=== PATIENT | male | born 1965 | race Caucasian/White ===

== ENCOUNTER 2018-01-01 17:44 | Inpatient (IN) | payer OTHER ==
[2018-01-01 19:12] VITALS: BMI 29.3
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
[2018-01-01] MEDS ORDERED: guaiFENesin/D-METHORPHAN HB 10 ML UNIT-DOSE CUPS PO PRN (21:40)
[2018-01-01] MEDS ORDERED: MAGNESIUM HYDROX 2400MG/30ML ORAL SUSPENSION 30 ML CUP PO PRN (21:40)
[2018-01-01] MEDS ORDERED: hydrOXYzine PAMOATE 50 MG CAPSULE (FP) PO PRN (21:40)
[2018-01-01] MEDS ORDERED: LOPERAMIDE HCL 2 MG CAPSULE PO PRN (21:40)
[2018-01-01] MEDS ORDERED: chlordiazePOXIDE HCL 25 MG CAPSULE PO PRN (21:40)
[2018-01-01] MEDS ORDERED: MENTHOL/PHENOL 1 EACH UD MM PRN (21:40)
[2018-01-01] MEDS ORDERED: MAGNESIUM CITRATE 300 ML BOTTLE PO PRN (21:40)
[2018-01-01] MEDS ORDERED: IBUPROFEN 400 MG TABLET (FP) PO PRN (21:40)
[2018-01-01] MEDS ORDERED: chlordiazePOXIDE HCL 25 MG CAPSULE PO ONE (21:40)
[2018-01-01] MEDS ORDERED: MAG HYDROX/AL HYDROX/SIMETH 30 ML UNIT-DOSE CUP PO PRN (21:40)
[2018-01-01] MEDS ORDERED: P-EPHED 60MG/TRIPROLIDI 2.5MG TABLET PO PRN (21:40)
[2018-01-01] MEDS ORDERED: ACETAMINOPHEN 325 MG TABLET (FP) PO PRN (21:40)
[2018-01-01] MEDS: THIAMINE HCL 100 MG TABLET (FP) PO SCH (22:43)
[2018-01-01] MEDS: chlordiazePOXIDE HCL 25 MG CAPSULE PO SCH (22:44)
[2018-01-01] MEDS: MELATONIN 5 MG TABLETS PO PRN (22:44)
[2018-01-02 01:10] LABS: URINE APPEARANCE CLEAR; URINE BILIRUBIN NEGATIVE (<2.0 mg/dL); URINE COLOR STRAW; URINE GLUCOSE (UA) NEGATIVE (NEGATIVE); URINE KETONE NEGATIVE (NEGATIVE); URINE LEUK ESTERASE NEGATIVE (NEGATIVE); URINE NITRITE NEGATIVE (NEGATIVE); URINE PROTEIN NEGATIVE (NEGATIVE); URINE UROBILINOGEN NEGATIVE mg/dL (0.2-1.0)
[2018-01-02] MEDS: chlordiazePOXIDE HCL 25 MG CAPSULE PO SCH ×4 (05:46→22:06)
[2018-01-02] MEDS ORDERED: METHADONE HCL 10 MG TABLET PO SCH (09:15)
[2018-01-02] MEDS ORDERED: METHADONE 40 MG, METHADONE 5 MG PO ONE (09:45)
[2018-01-02 09:55] LABS: HEMOGLOBIN 12.6 GM/dL (11.7-16.9); MCH 28.3 pg (25.7-33.7); MEAN CELL VOLUME 85.9 fl (80-96); MEAN PLT VOLUME 7.7 fl (7.5-11.1); PLATELET COUNT 273 K/MM3 (134-434); RBC 4.43 M/mm3 (4.00-5.60); RDW 13.7 % (11.9-15.9); WHITE BLOOD COUNT 8.5 K/mm3 (4.0-10.0)
[2018-01-02 09:56] LABS: ALBUMIN 3.1 g/dl (3.4-5.0); ANION GAP 6 (8-16); BLOOD UREA NITROGEN 10 mg/dL (7-18); CALCIUM 8.2 mg/dL (8.5-10.1); CHLORIDE 106 mmol/L (98-107); CO2 31 mmol/L (21-32); CREATININE 0.7 mg/dL (0.7-1.3); GLUCOSE,RANDOM 82 mg/dL (74-106); POTASSIUM 4.6 mmol/L (3.5-5.1); SGOT/AST 12 U/L (15-37); SGPT/ALT 14 U/L (12-78); SODIUM 143 mmol/L (136-145)
[2018-01-02 09:58] LABS: ALK PHOS 111 U/L (45-117); BILIRUBIN,TOTAL 0.3 mg/dL (0.2-1.0); TOT PROT 6.9 g/dl (6.4-8.2)
[2018-01-02] MEDS ORDERED: METHADONE HCL 5 MG TABLET ONE (10:18)
[2018-01-02] MEDS ORDERED: METHADONE HCL 40 MG DISPERSABLE TABLET ONE (10:19)
[2018-01-02] MEDS: PRENATAL VITAMINS W/ FOLIC ACID TABLET (FP) PO SCH (10:24)
[2018-01-02] MEDS: NICOTINE 14 MG/24 HOURS TOPICAL PATCH TD SCH (10:24)
--- NOTE | 2018-01-02 11:16 | CONSULT ---
[facility] Psychiatric Consult - Data Date of interview: 01/02/18 Admission source: [facility] Identifying data: 52 yo male with hx of alcohol, xanax, klonopin, and nicotine dependence is here seeking detox. Last detox detox [facility] February 2016, PMHX: Hep C, GERD chronic pain left foot, anxiety and depression. Reports past hx of blackouts from alcohol , last episode 2 years ago. Denies suicidal / homicidal ideation. Longest period of sobriety 3 years.
--- NOTE | 2018-01-02 11:17 | CONSULT ---
[facility] Psychiatric Consult - Data Date of interview: 01/02/18 Admission source: [facility] Identifying data: This is 52 years old male, single, living alone, on SSI, ambulating with cane, with history of alcohol, xanax, klonopin, and nicotine dependence is here seeking detox. Oatient reportsn withdrawal symptoms. Denies psychiatric hospitalization history. Substance Abuse History: - Smoking Cessation. Smoking history: Current every day smoker. Have you smoked in the past 12 months: Yes. Aproximately how many cigarettes per day: 10. Hx Chewing Tobacco Use: No. Initiated information on smoking cessation: Yes. 'Breaking Loose' booklet given: 01/01/18. - Substance & Tx. History. Hx Alcohol Use: Yes. Hx Substance Use: Yes. Substance Use Type : Alcohol, Tranquilizers. Hx Substance Use Treatment: Yes (Last detox detox [facility] February 2016). - Substances Abused. Alcohol. Route: Oral. Frequency: Daily. Amount used: 15 CANS OF -16 OUNCES OF COORS LIGHT. Age of first use: 18. Date of Last Use: 01/01/18. Alprazolam (Xanax). Route: Oral. Frequency: 3-6 times per week. Amount used: 1.5MG TABLET. Age of first use: 52. Date of Last Use: 01/01/18. Benzodiazepine (Klonopin). Route: Oral. Frequency: 3-6 times per week. Amount used: 2MG TABLET. Age of first use: 52. Date of Last Use: 01/01/18 Medical History: Hep C, GERD Chronic pain left foot, s/p Left Ankle Suurgery, MMTP history Psychiatric History: Patient reports history of anxiety and depressionl, reports taking prior to admission: Prozac 20mg poqd Physical/Sexual Abuse/Trauma History: Denies Additional Comment: Prozac 20mg poqd Mental Status Exam - Mental Status Exam Alert and Oriented to: Person Cognitive Function: Fair Patient Appearance: Unkempt Mood: Sad Affect: Mood Congruent Patient Behavior: Guarded, Cooperative Speech Pattern: Appropriate Voice Loudness: Mildly Soft/Quiet Thought Process: Goal Oriented Thought Disorder: Being Controlled Hallucinations: Denies Suicidal Ideation: Denies Homicidal Ideation: Denies Insight/Judgement: Fair Sleep: Difficulty falling asleep Appetite: Weight gain Muscle strength/Tone: Mild Hypertonicity Gait/Station: Deferred Additional Comments: Prozac 20mg poqd Psychiatric Findings - Problem List ([place] 1, 2,3) (1) Alcohol dependence with uncomplicated withdrawal Current Visit: Yes Status: Acute (2) Sedative, hypnotic or anxiolytic dependence with withdrawal, unspecified Current Visit: Yes Status: Acute (3) Nicotine dependence Current Visit: Yes Status: Chronic Qualifiers: Nicotine product type: cigarettes Substance use status: uncomplicated Qualified Code(s): F17.210 - Nicotine dependence, cigarettes, uncomplicated (4) Opioid dependence on agonist therapy Current Visit: Yes Status: Chronic (5) Substance induced mood disorder Current Visit: No Status: Chronic (6) Methadone maintenance therapy patient Current Visit: No Status: Chronic - Initial Treatment Plan Initial Treatment Plan: Prozac 20mg poqd
[2018-01-02] MEDS: FLUoxetine HCL 20 MG CAPSULE (FP) PO SCH (11:59)
--- NOTE | 2018-01-02 13:26 | PN ---
S CIWA - CIWA Score Nausea/Vomitin-No Nausea/No Vomiting Muscle Tremors: 3 Anxiety: 4-Mod. Anxious/Guarded Agitation: 3 Paroxysmal Sweats: 3 Orientation: 0-Oriented Tacttile Disturbances: 0-None Auditory Disturbances: 2-Mild Harshness/Frighten Visual Disturbances: 2-Mild Sensitivity Headache: 0-None Present CIWA-Ar Total Score: 17 BHS Progress Note (SOAP) Subjective: Tremors, Anxious, Stomach Cramping, Sweating. Objective: PATIENT A & O X 3. PATIENT OBSERVED AMBULATING ON UNIT. NO ACUTE DISTRESS. 01/02/18 13:24 Vital Signs Temperature 96.3 F L 01/02/18 09:29 Pulse Rate 87 01/02/18 09:29 Respiratory Rate 20 01/02/18 09:29 Blood Pressure 93/58 01/02/18 09:29 O2 Sat by Pulse Oximetry (%) Laboratory Tests 01/02/18 01/02/18 01/02/18 00:01 07:00 07:00 WBC 8.5 RBC 4.43 Hgb 12.6 Hct 38.0 MCV 85.9 MCH 28.3 MCHC 33.0 RDW 13.7 Plt Count 273 MPV 7.7 Sodium 143 Potassium 4.6 Chloride 106 Carbon Dioxide 31 D Anion Gap 6 L BUN 10 Creatinine 0.7 Creat Clearance w eGFR > 60 Random Glucose 82 Calcium 8.2 L Total Bilirubin 0.3 D AST 12 L D ALT 14 D Alkaline Phosphatase 111 D Total Protein 6.9 Albumin 3.1 L Urine Color Straw Urine Appearance Clear Urine pH 6.0 Ur Specific [place] 1.004 Urine Protein Negative Urine Glucose (UA) Negative Urine Ketones Negative Urine Blood Negative Urine Nitrite Negative Urine Bilirubin Negative Urine Urobilinogen Negative Ur Leukocyte Esterase Negative RPR Titer 01/02/18 07:00 WBC RBC Hgb Hct MCV MCH MCHC RDW Plt Count MPV Sodium Potassium Chloride Carbon Dioxide Anion Gap BUN Creatinine Creat Clearance w eGFR Random Glucose Calcium Total Bilirubin AST ALT Alkaline Phosphatase Total Protein Albumin Urine Color Urine Appearance Urine pH Ur Specific [place] Urine Protein Urine Glucose (UA) Urine Ketones Urine Blood Urine Nitrite Urine Bilirubin Urine Urobilinogen Ur Leukocyte Esterase RPR Titer Nonreactive LABS NOTED. 01/02/18 13:26 Assessment: 01/02/18 13:25 WITHDRAWAL SYMPTOMS. Plan: CONTINUE DETOX. INCREASE DAILY PO FLUID INTAKE.
--- NOTE | 2018-01-02 16:34 | EKG ---
Test Reason : Blood Pressure : / mmHG Vent. Rate : 076 BPM Atrial Rate : 076 BPM P-R Int : 180 ms QRS Dur : 098 ms QT Int : 388 ms P-R-T Axes : 043 022 020 degrees QTc Int : 436 ms NORMAL SINUS RHYTHM NORMAL ECG NO PREVIOUS ECGS AVAILABLE Confirmed by LYNDON BLACK MD ([id number]) on 01/02/2018 4:34:01 PM Referred By: Confirmed By:LYNDON BLACK MD
[2018-01-02] MEDS: THIAMINE HCL 100 MG TABLET (FP) PO SCH (22:06)
[2018-01-02] MEDS: MELATONIN 5 MG TABLETS PO PRN (22:07)
[2018-01-03] MEDS ORDERED: METHADONE HCL 40 MG DISPERSABLE TABLET ONE (04:38)
[2018-01-03] MEDS ORDERED: METHADONE HCL 5 MG TABLET ONE (04:38)
[2018-01-03] MEDS: chlordiazePOXIDE HCL 25 MG CAPSULE PO SCH ×3 (05:40→17:36)
[2018-01-03] MEDS: METHADONE 40 MG, METHADONE 5 MG PO SCH (05:40)
[2018-01-03] MEDS: PRENATAL VITAMINS W/ FOLIC ACID TABLET (FP) PO SCH (10:06)
[2018-01-03] MEDS: NICOTINE 14 MG/24 HOURS TOPICAL PATCH TD SCH (10:07)
[2018-01-03] MEDS: FLUoxetine HCL 20 MG CAPSULE (FP) PO SCH (10:07)
--- NOTE | 2018-01-03 16:04 | PN ---
[facility] CIWA - CIWA Score Nausea/Vomitin-No Nausea/No Vomiting Muscle Tremors: 3 Anxiety: 3 Agitation: 3 Paroxysmal Sweats: No Perspiration Orientation: 2-Disoriented Date<2 days Tacttile Disturbances: 3-Moderate Itch/Numb/Burn Auditory Disturbances: 0-None Visual Disturbances: 2-Mild Sensitivity Headache: 0-None Present CIWA-Ar Total Score: 16 BHS Progress Note (SOAP) Subjective: Tremors, Body Aches, Fatigue, Constipation. Objective: PATIENT A & O X 2 (UNCERTAIN ABOUT CURRENT DAY / DATE). PATIENT OBSERVED AMBULATING ON UNIT WITH ASSISTANCE OF A CANE. NO ACUTE DISTRESS. 01/03/18 16:04 Vital Signs Temperature 96.8 F L 01/03/18 13:07 Pulse Rate 83 01/03/18 13:07 Respiratory Rate 18 01/03/18 13:07 Blood Pressure 109/70 01/03/18 13:07 O2 Sat by Pulse Oximetry (%) Laboratory Tests 01/02/18 01/02/18 01/02/18 00:01 07:00 07:00 WBC 8.5 RBC 4.43 Hgb 12.6 Hct 38.0 MCV 85.9 MCH 28.3 MCHC 33.0 RDW 13.7 Plt Count 273 MPV 7.7 Sodium 143 Potassium 4.6 Chloride 106 Carbon Dioxide 31 D Anion Gap 6 L BUN 10 Creatinine 0.7 Creat Clearance w eGFR > 60 Random Glucose 82 Calcium 8.2 L Total Bilirubin 0.3 D AST 12 L D ALT 14 D Alkaline Phosphatase 111 D Total Protein 6.9 Albumin 3.1 L Urine Color Straw Urine Appearance Clear Urine pH 6.0 Ur Specific [place] 1.004 Urine Protein Negative Urine Glucose (UA) Negative Urine Ketones Negative Urine Blood Negative Urine Nitrite Negative Urine Bilirubin Negative Urine Urobilinogen Negative Ur Leukocyte Esterase Negative RPR Titer 01/02/18 07:00 WBC RBC Hgb Hct MCV MCH MCHC RDW Plt Count MPV Sodium Potassium Chloride Carbon Dioxide Anion Gap BUN Creatinine Creat Clearance w eGFR Random Glucose Calcium Total Bilirubin AST ALT Alkaline Phosphatase Total Protein Albumin Urine Color Urine Appearance Urine pH Ur Specific [place] Urine Protein Urine Glucose (UA) Urine Ketones Urine Blood Urine Nitrite Urine Bilirubin Urine Urobilinogen Ur Leukocyte Esterase RPR Titer Nonreactive LABS NOTED. Assessment: 01/03/18 16:05 WITHDRAWAL SYMPTOMS. Plan: CONTINUE DETOX. INCREASE DAILY PO FLUID INTAKE.
[2018-01-03] MEDS: METHYL SALICYLATE/MENTHOL OINT 30 GM TUBE TP SCH (22:13)
[2018-01-03] MEDS: chlordiazePOXIDE 5 MG CAPSULE PO SCH (22:14)
[2018-01-03] MEDS: MELATONIN 5 MG TABLETS PO PRN (22:14)
[2018-01-03] MEDS: THIAMINE HCL 100 MG TABLET (FP) PO SCH (22:14)
[2018-01-04] MEDS ORDERED: METHADONE HCL 5 MG TABLET ONE (03:36)
[2018-01-04] MEDS ORDERED: METHADONE HCL 40 MG DISPERSABLE TABLET ONE (03:36)
[2018-01-04] MEDS: METHADONE 40 MG, METHADONE 5 MG PO SCH (05:12)
[2018-01-04] MEDS: chlordiazePOXIDE 5 MG CAPSULE PO SCH ×3 (05:12→17:48)
[2018-01-04] MEDS: PRENATAL VITAMINS W/ FOLIC ACID TABLET (FP) PO SCH (10:16)
[2018-01-04] MEDS: FLUoxetine HCL 20 MG CAPSULE (FP) PO SCH (10:16)
[2018-01-04] MEDS: NICOTINE 14 MG/24 HOURS TOPICAL PATCH TD SCH (10:17)
[2018-01-04] MEDS: METHYL SALICYLATE/MENTHOL OINT 30 GM TUBE TP SCH ×2 (10:17→22:17)
--- NOTE | 2018-01-04 14:58 | PN ---
BHS Progress Note (SOAP) Subjective: Body Aches, Anxious, Tremors, Constipation. Objective: PATIENT A & O X 3, OBSERVED AMBULATING ON UNIT WITH ASSISTANCE OF A CANE. NO ACUTE DISTRESS. 01/04/18 14:57 Vital Signs Temperature 97.4 F L 01/04/18 14:46 Pulse Rate 91 H 01/04/18 14:46 Respiratory Rate 20 01/04/18 14:46 Blood Pressure 114/77 01/04/18 14:46 O2 Sat by Pulse Oximetry (%) Laboratory Tests 01/02/18 01/02/18 01/02/18 00:01 07:00 07:00 WBC 8.5 RBC 4.43 Hgb 12.6 Hct 38.0 MCV 85.9 MCH 28.3 MCHC 33.0 RDW 13.7 Plt Count 273 MPV 7.7 Sodium 143 Potassium 4.6 Chloride 106 Carbon Dioxide 31 D Anion Gap 6 L BUN 10 Creatinine 0.7 Creat Clearance w eGFR > 60 Random Glucose 82 Calcium 8.2 L Total Bilirubin 0.3 D AST 12 L D ALT 14 D Alkaline Phosphatase 111 D Total Protein 6.9 Albumin 3.1 L Urine Color Straw Urine Appearance Clear Urine pH 6.0 Ur Specific [place] 1.004 Urine Protein Negative Urine Glucose (UA) Negative Urine Ketones Negative Urine Blood Negative Urine Nitrite Negative Urine Bilirubin Negative Urine Urobilinogen Negative Ur Leukocyte Esterase Negative RPR Titer 01/02/18 07:00 WBC RBC Hgb Hct MCV MCH MCHC RDW Plt Count MPV Sodium Potassium Chloride Carbon Dioxide Anion Gap BUN Creatinine Creat Clearance w eGFR Random Glucose Calcium Total Bilirubin AST ALT Alkaline Phosphatase Total Protein Albumin Urine Color Urine Appearance Urine pH Ur Specific [place] Urine Protein Urine Glucose (UA) Urine Ketones Urine Blood Urine Nitrite Urine Bilirubin Urine Urobilinogen Ur Leukocyte Esterase RPR Titer Nonreactive LABS NOTED. 01/04/18 14:58 Assessment: 01/04/18 14:57 WITHDRAWAL SYMPTOMS. Plan: CONTINUE DETOX. PATIENT SCHEDULED FOR D/C TOMORROW.
[2018-01-04] MEDS: chlordiazePOXIDE HCL 10 MG CAPSULE PO SCH (22:17)
[2018-01-04] MEDS: THIAMINE HCL 100 MG TABLET (FP) PO SCH (22:17)
[2018-01-04] MEDS: MELATONIN 5 MG TABLETS PO PRN (22:17)
[2018-01-05] MEDS ORDERED: METHADONE HCL 5 MG TABLET ONE (04:51)
[2018-01-05] MEDS ORDERED: METHADONE HCL 40 MG DISPERSABLE TABLET ONE (04:51)
[2018-01-05] MEDS: METHADONE 40 MG, METHADONE 5 MG PO SCH (05:16)
[2018-01-05] MEDS: chlordiazePOXIDE HCL 10 MG CAPSULE PO SCH ×2 (05:16→11:09)
[2018-01-05] MEDS: METHYL SALICYLATE/MENTHOL OINT 30 GM TUBE TP SCH ×2 (10:27→22:47)
[2018-01-05] MEDS: FLUoxetine HCL 20 MG CAPSULE (FP) PO SCH (10:27)
[2018-01-05] MEDS: PRENATAL VITAMINS W/ FOLIC ACID TABLET (FP) PO SCH (10:27)
[2018-01-05] MEDS: NICOTINE 14 MG/24 HOURS TOPICAL PATCH TD SCH (10:27)
--- NOTE | 2018-01-05 12:20 | DS ---
[facility] Detox Discharge Summary Admission Date: 01/01/18 Discharge Date: 01/05/18 [facility] - History Present History: Alcohol Dependence, Sedative Dependence, MMTP Pertinent Past History: PPD Positive - Physical Exam Results Vital Signs: Vital Signs Temperature 98.1 F 01/05/18 11:18 Pulse Rate 85 01/05/18 11:18 Respiratory Rate 20 01/05/18 11:18 Blood Pressure 120/81 01/05/18 11:18 O2 Sat by Pulse Oximetry (%) Pertinent Admission Physical Exam Findings: Withdrawal symptoms Laboratory Tests 01/02/18 01/02/18 01/02/18 00:01 07:00 07:00 WBC 8.5 RBC 4.43 Hgb 12.6 Hct 38.0 MCV 85.9 MCH 28.3 MCHC 33.0 RDW 13.7 Plt Count 273 MPV 7.7 Sodium 143 Potassium 4.6 Chloride 106 Carbon Dioxide 31 D Anion Gap 6 L BUN 10 Creatinine 0.7 Creat Clearance w eGFR > 60 Random Glucose 82 Calcium 8.2 L Total Bilirubin 0.3 D AST 12 L D ALT 14 D Alkaline Phosphatase 111 D Total Protein 6.9 Albumin 3.1 L Urine Color Straw Urine Appearance Clear Urine pH 6.0 Ur Specific [place] 1.004 Urine Protein Negative Urine Glucose (UA) Negative Urine Ketones Negative Urine Blood Negative Urine Nitrite Negative Urine Bilirubin Negative Urine Urobilinogen Negative Ur Leukocyte Esterase Negative RPR Titer 01/02/18 07:00 WBC RBC Hgb Hct MCV MCH MCHC RDW Plt Count MPV Sodium Potassium Chloride Carbon Dioxide Anion Gap BUN Creatinine Creat Clearance w eGFR Random Glucose Calcium Total Bilirubin AST ALT Alkaline Phosphatase Total Protein Albumin Urine Color Urine Appearance Urine pH Ur Specific [place] Urine Protein Urine Glucose (UA) Urine Ketones Urine Blood Urine Nitrite Urine Bilirubin Urine Urobilinogen Ur Leukocyte Esterase RPR Titer Nonreactive Labs reviewed - Treatment Hospital Course: Detox Protocol Followed, Detoxed Safely, Responded well, Discharged Condition Good, Rehab Referral Accepted - Medication Discharge Medications: Ambulatory Orders Fluoxetine HCl [Prozac -] 20 mg PO DAILY #30 capsule 01/02/18 Fluoxetine HCl [Prozac] 20 mg PO DAILY #30 capsule 01/02/18 - Diagnosis (1) Alcohol dependence with uncomplicated withdrawal Current Visit: Yes Status: Acute (2) History of positive PPD Current Visit: Yes Status: Acute (3) Sedative, hypnotic or anxiolytic dependence with withdrawal, unspecified Current Visit: Yes Status: Acute (4) Back pain Current Visit: Yes Status: Chronic Qualifiers: Back pain location: low back pain Chronicity: chronic Back pain laterality: unspecified Sciatica presence: unspecified whether sciatica present Qualified Code(s): M54.5 - Low back pain; G89.29 - Other chronic pain (5) Hepatitis C carrier Current Visit: Yes Status: Chronic (6) Hypercholesterolemia Current Visit: Yes Status: Chronic (7) Nicotine dependence Current Visit: Yes Status: Chronic Qualifiers: Nicotine product type: cigarettes Substance use status: uncomplicated Qualified Code(s): F17.210 - Nicotine dependence, cigarettes, uncomplicated (8) Opioid dependence on agonist therapy Current Visit: Yes Status: Chronic - AMA Did Patient Leave Against Medical Advice: No (Transferred to [facility] on 5N)
[2018-01-05] MEDS: THIAMINE HCL 100 MG TABLET (FP) PO SCH (21:42)
[2018-01-05] MEDS: MELATONIN 5 MG TABLETS PO PRN (21:42)
[2018-01-06] MEDS ORDERED: METHADONE HCL 5 MG TABLET ONE (06:45)
[2018-01-06] MEDS: METHADONE 40 MG, METHADONE 5 MG PO SCH (06:46)
[2018-01-06] MEDS ORDERED: METHADONE HCL 40 MG DISPERSABLE TABLET ONE (06:46)
[2018-01-06] MEDS: NICOTINE 14 MG/24 HOURS TOPICAL PATCH TD SCH (10:00)
[2018-01-06] MEDS: FLUoxetine HCL 20 MG CAPSULE (FP) PO SCH (10:00)
[2018-01-06] MEDS: PRENATAL VITAMINS W/ FOLIC ACID TABLET (FP) PO SCH (10:00)
[2018-01-06] MEDS: METHYL SALICYLATE/MENTHOL OINT 30 GM TUBE TP SCH ×2 (10:00→21:49)
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
[2018-01-06] MEDS: NICOTINE POLACRILEX 2 MG GUM BC PRN (20:18)
[2018-01-06] MEDS: hydrOXYzine PAMOATE 50 MG CAPSULE (FP) PO SCH (21:49)
[2018-01-06] MEDS: THIAMINE HCL 100 MG TABLET (FP) PO SCH (21:49)
[2018-01-07] MEDS ORDERED: METHADONE HCL 40 MG DISPERSABLE TABLET ONE (03:28)
[2018-01-07] MEDS ORDERED: METHADONE HCL 5 MG TABLET ONE (03:28)
[2018-01-07] MEDS: METHADONE 40 MG, METHADONE 5 MG PO SCH (06:15)
[2018-01-07] MEDS: PRENATAL VITAMINS W/ FOLIC ACID TABLET (FP) PO SCH (10:30)
[2018-01-07] MEDS: FLUoxetine HCL 20 MG CAPSULE (FP) PO SCH (10:30)
[2018-01-07] MEDS: METHYL SALICYLATE/MENTHOL OINT 30 GM TUBE TP SCH ×2 (10:31→21:44)
[2018-01-07] MEDS: NICOTINE 14 MG/24 HOURS TOPICAL PATCH TD SCH (10:31)
[2018-01-07] MEDS: hydrOXYzine PAMOATE 50 MG CAPSULE (FP) PO SCH (21:43)
[2018-01-07] MEDS: THIAMINE HCL 100 MG TABLET (FP) PO SCH (21:43)
[2018-01-08] MEDS ORDERED: METHADONE HCL 5 MG TABLET ONE (05:58)
[2018-01-08] MEDS ORDERED: METHADONE HCL 40 MG DISPERSABLE TABLET ONE (05:59)
[2018-01-08] MEDS: METHADONE 40 MG, METHADONE 5 MG PO SCH (06:40)
[2018-01-08] MEDS: METHYL SALICYLATE/MENTHOL OINT 30 GM TUBE TP SCH ×2 (10:38→21:46)
[2018-01-08] MEDS: NICOTINE 14 MG/24 HOURS TOPICAL PATCH TD SCH (10:38)
[2018-01-08] MEDS: PRENATAL VITAMINS W/ FOLIC ACID TABLET (FP) PO SCH (10:38)
[2018-01-08] MEDS: FLUoxetine HCL 20 MG CAPSULE (FP) PO SCH (10:39)
[2018-01-08] MEDS: THIAMINE HCL 100 MG TABLET (FP) PO SCH (21:46)
[2018-01-08] MEDS: hydrOXYzine PAMOATE 50 MG CAPSULE (FP) PO SCH (21:46)
[2018-01-09] MEDS ORDERED: METHADONE HCL 5 MG TABLET ONE (05:20)
[2018-01-09] MEDS ORDERED: METHADONE HCL 40 MG DISPERSABLE TABLET ONE (05:22)
[2018-01-09] MEDS: METHADONE 40 MG, METHADONE 5 MG PO SCH (06:38)
[2018-01-09] MEDS: PRENATAL VITAMINS W/ FOLIC ACID TABLET (FP) PO SCH (10:33)
[2018-01-09] MEDS: FLUoxetine HCL 20 MG CAPSULE (FP) PO SCH (10:33)
[2018-01-09] MEDS: NICOTINE 14 MG/24 HOURS TOPICAL PATCH TD SCH (10:33)
[2018-01-09] MEDS: METHYL SALICYLATE/MENTHOL OINT 30 GM TUBE TP SCH ×2 (10:34→21:47)
[2018-01-09] MEDS: THIAMINE HCL 100 MG TABLET (FP) PO SCH (21:47)
[2018-01-09] MEDS: hydrOXYzine PAMOATE 50 MG CAPSULE (FP) PO SCH (21:47)
[2018-01-10] MEDS ORDERED: METHADONE HCL 10 MG TABLET PO SCH (07:00)
[2018-01-10] MEDS ORDERED: METHADONE HCL 5 MG TABLET ONE (07:34)
[2018-01-10] MEDS ORDERED: METHADONE HCL 40 MG DISPERSABLE TABLET ONE (07:34)
[2018-01-10] MEDS: METHADONE 40 MG, METHADONE 5 MG PO SCH (07:37)
[2018-01-10] MEDS: PRENATAL VITAMINS W/ FOLIC ACID TABLET (FP) PO SCH (10:36)
[2018-01-10] MEDS: NICOTINE 14 MG/24 HOURS TOPICAL PATCH TD SCH (10:36)
[2018-01-10] MEDS: FLUoxetine HCL 20 MG CAPSULE (FP) PO SCH (10:36)
[2018-01-10] MEDS: METHYL SALICYLATE/MENTHOL OINT 30 GM TUBE TP SCH ×2 (10:37→21:33)
[2018-01-10] MEDS: THIAMINE HCL 100 MG TABLET (FP) PO SCH (21:33)
[2018-01-10] MEDS: hydrOXYzine PAMOATE 50 MG CAPSULE (FP) PO SCH (21:33)
[2018-01-11] MEDS ORDERED: METHADONE HCL 5 MG TABLET ONE (03:28)
[2018-01-11] MEDS ORDERED: METHADONE HCL 40 MG DISPERSABLE TABLET ONE (03:28)
[2018-01-11] MEDS: METHADONE 40 MG, METHADONE 5 MG PO SCH (06:27)
[2018-01-11] MEDS: PRENATAL VITAMINS W/ FOLIC ACID TABLET (FP) PO SCH (10:28)
[2018-01-11] MEDS: FLUoxetine HCL 20 MG CAPSULE (FP) PO SCH (10:28)
[2018-01-11] MEDS: NICOTINE 14 MG/24 HOURS TOPICAL PATCH TD SCH (10:28)
[2018-01-11] MEDS: METHYL SALICYLATE/MENTHOL OINT 30 GM TUBE TP SCH ×2 (10:28→21:53)
[2018-01-11] MEDS: hydrOXYzine PAMOATE 50 MG CAPSULE (FP) PO SCH (21:53)
[2018-01-11] MEDS: THIAMINE HCL 100 MG TABLET (FP) PO SCH (21:53)
[2018-01-12] MEDS ORDERED: METHADONE HCL 5 MG TABLET ONE (03:53)
[2018-01-12] MEDS ORDERED: METHADONE HCL 40 MG DISPERSABLE TABLET ONE (03:54)
[2018-01-12] MEDS: METHADONE 40 MG, METHADONE 5 MG PO SCH (06:35)
[2018-01-12] MEDS: FLUoxetine HCL 20 MG CAPSULE (FP) PO SCH (10:17)
[2018-01-12] MEDS: PRENATAL VITAMINS W/ FOLIC ACID TABLET (FP) PO SCH (10:17)
[2018-01-12] MEDS: METHYL SALICYLATE/MENTHOL OINT 30 GM TUBE TP SCH ×2 (10:19→21:32)
[2018-01-12] MEDS: NICOTINE 14 MG/24 HOURS TOPICAL PATCH TD SCH (10:19)
[2018-01-12] MEDS: hydrOXYzine PAMOATE 50 MG CAPSULE (FP) PO SCH (21:31)
[2018-01-12] MEDS: THIAMINE HCL 100 MG TABLET (FP) PO SCH (21:32)
[2018-01-12] MEDS: MELATONIN 5 MG TABLETS PO PRN (21:33)
[2018-01-13] MEDS ORDERED: METHADONE HCL 5 MG TABLET ONE (04:40)
[2018-01-13] MEDS ORDERED: METHADONE HCL 40 MG DISPERSABLE TABLET ONE (04:40)
[2018-01-13] MEDS: METHADONE 40 MG, METHADONE 5 MG PO SCH (06:39)
[2018-01-13] MEDS: FLUoxetine HCL 20 MG CAPSULE (FP) PO SCH (10:26)
[2018-01-13] MEDS: PRENATAL VITAMINS W/ FOLIC ACID TABLET (FP) PO SCH (10:26)
[2018-01-13] MEDS: NICOTINE 14 MG/24 HOURS TOPICAL PATCH TD SCH (10:26)
[2018-01-13] MEDS: METHYL SALICYLATE/MENTHOL OINT 30 GM TUBE TP SCH ×2 (10:26→21:48)
--- NOTE | 2018-01-13 17:43 | PN ---
Psychiatric Progress Note Vital Signs: Vital Signs Period Temp Pulse Resp BP Sys/Kim Pulse Ox Last 24 Hr 97.0 F 76 18 112/71 Date of Session: 01/13/18 Chief Complaint:: " I cannot sleep at night." HPI: Case of a 52 y/o male admitted to [address] to address alcohol,sedative-anxiolytic dependence co-morbid with major depressive dissorder and nicotine dependence. ROS: Unremarkable on examination.Patient complains of daytime sleepiness (found awake in interview).Ambulatory.Visible on the unit.Well groomed.Cognitively intact.Medical issues addressed (see new admission report). Current Medications: Active Medications Generic Name Dose Route Start Last Admin Trade Name Freq PRN Reason Stop Dose Admin Acetaminophen 650 mg 01/01/18 21:40 Tylenol - PO Q4H PRN FEVER Al Hydroxide/Mg Hydroxide 30 ml 01/01/18 21:40 Mylanta Oral Suspension - PO Q6H PRN DYSPEPSIA Eucalyptus/Menthol/Phenol/Sorbitol 1 each 01/01/18 21:40 Cepastat Lozenge - MM Q4H PRN SORE THROAT Fluoxetine HCl 20 mg 01/02/18 11:00 01/13/18 10:26 Prozac - PO 20 mg DAILY GUDELIA Administration Guaifenesin 10 ml 01/01/18 21:40 01/02/18 17:23 Robitussin Dm - PO 10 ml Q6H PRN Administration COUGH Hydroxyzine Pamoate 50 mg 01/06/18 22:00 01/12/18 21:31 Vistaril - PO 50 mg HS GUDELIA Administration Ibuprofen 400 mg 01/01/18 21:40 Motrin - PO Q6H PRN PAIN LEVEL 4-6 Loperamide HCl 4 mg 01/01/18 21:40 Imodium - PO Q6H PRN DIARRHEA Magnesium Citrate 300 ml 01/01/18 21:40 Citroma - PO Q48H PRN CONSTIPATION Magnesium Hydroxide 30 ml 01/01/18 21:40 Milk Of Magnesia - PO DAILY PRN CONSTIPATION Melatonin 5 mg 01/01/18 22:00 01/12/18 21:33 Melatonin PO 5 mg HS PRN Administration INSOMNIA Methadone HCl 40 mg/ Methadone 45 mg 01/10/18 07:15 01/13/18 06:39 HCl 5 mg PO 45 mg DAILY@0600 GUDELIA Administration Methyl Salicylate 1 applic 05/25/18 22:00 01/13/18 10:26 Gopal-Sutton - TP Not Given BID GUDELIA Nicotine 14 mg 01/02/18 10:00 01/13/18 10:26 Nicoderm Patch - TD 14 mg DAILY GUDELIA Administration Nicotine Polacrilex 2 mg 01/01/18 21:40 01/06/18 20:18 Nicorette Gum - BC 2 mg Q2H PRN Administration NICOTINE REPLACEMENT RX Multivit/Folic Acid/Iron 1 tab 01/02/18 10:00 01/13/18 10:26 Vitamins (Sjr) - PO 1 tab DAILY GUDELIA Administration Pseudoephedrine/Triprolidine 1 combo 01/01/18 21:40 Actifed - PO TID PRN NASAL CONGESTION Thiamine HCl 100 mg 01/01/18 22:00 01/12/18 21:32 Vitamin B1 - PO 100 mg HS GUDELIA Administration Medication(s) Change(s): Medications revisited.Hypnotic medications discussed with the patient.Mr Ruiz endorses a preference for trazodone due to a personal history of favorable response to that drug.He agrees to take 50 mg orally at bedtime.Patient is made aware of the risk of priapism and he is instructed to alert MD/RN if occurrence of erectile phenomena (painful/ prolonged erection).He aknowledges good understanding of the information and he agrees to follow this plan of care. Current Side Effect: No Lab tests ordered: No Lab tests reviewed: Yes Provider note:: Chart reviewed.Met with the patient.Mr Ruiz is noted as friendly,well-mannered,conversant and goal-directed.Concerned about his inability to fall asleep or remains asleep overnight.He indicates that his dose of methadone (45 mg/day) might be " too strong " for him.Complains of " sleeping too much " during the day.Sleep hygiene principles wre discussed with the patient.Is offered a choice of hypnotics.Chose trazodone.Hospital course remains benign.patient is at his baseline.Stable mental status. Total face to face time:: 25 Mental Status Exam - Mental Status Exam Alert and Oriented to: Time, Place, Person Cognitive Function: Good Patient Appearance: Well Groomed Mood: Hopeful, Euthymic Affect: Appropriate, Normal Range Patient Behavior: Appropriate, Cooperative Speech Pattern: Clear, Appropriate Voice Loudness: Normal Thought Process: Intact, Goal Oriented Thought Disorder: Not Present Hallucinations: Denies Suicidal Ideation: Denies Homicidal Ideation: Denies Insight/Judgement: Fair Sleep: Poorly, Difficulty falling asleep Appetite: Good Muscle strength/Tone: Normal Gait/Station: Normal Psychiatric Treatment Plan - Problem List (1) Insomnia Current Visit: Yes Comment: . (2) Alcohol dependence Current Visit: Yes Comment: . (3) Sedative hypnotic or anxiolytic dependence Current Visit: Yes Comment: . (4) Opioid dependence on agonist therapy Current Visit: Yes Comment: . (5) Nicotine dependence Current Visit: Yes Qualifiers: Nicotine product type: cigarettes Substance use status: uncomplicated Qualified Code(s): F17.210 - Nicotine dependence, cigarettes, uncomplicated Comment: . (6) MDD (major depressive disorder) Current Visit: Yes Comment: .As per history and existing records.
[2018-01-13] MEDS: traZODone HCL 50 MG TABLET (FP) PO SCH (21:47)
[2018-01-13] MEDS: hydrOXYzine PAMOATE 50 MG CAPSULE (FP) PO SCH (21:47)
[2018-01-13] MEDS: THIAMINE HCL 100 MG TABLET (FP) PO SCH (21:48)
[2018-01-14] MEDS ORDERED: METHADONE HCL 5 MG TABLET ONE (05:19)
[2018-01-14] MEDS ORDERED: METHADONE HCL 40 MG DISPERSABLE TABLET ONE (05:19)
[2018-01-14] MEDS: METHADONE 40 MG, METHADONE 5 MG PO SCH (06:52)
[2018-01-14] MEDS: NICOTINE POLACRILEX 2 MG GUM BC PRN (08:51)
[2018-01-14] MEDS: PRENATAL VITAMINS W/ FOLIC ACID TABLET (FP) PO SCH (10:42)
[2018-01-14] MEDS: NICOTINE 14 MG/24 HOURS TOPICAL PATCH TD SCH (10:42)
[2018-01-14] MEDS: METHYL SALICYLATE/MENTHOL OINT 30 GM TUBE TP SCH ×2 (10:42→22:01)
[2018-01-14] MEDS: FLUoxetine HCL 20 MG CAPSULE (FP) PO SCH (10:42)
--- NOTE | 2018-01-14 12:52 | PN ---
[facility] Progress Note Note: Patient requested clonide for withdrawal symptoms . Vital Signs (72 hours) 01/12/18 01/12/18 01/12/18 00:30 03:28 07:28 Temperature 98.5 F Pulse Rate 78 Respiratory 18 18 18 Rate Blood Pressure 110/81 01/13/18 01/14/18 01/14/18 06:55 00:30 03:30 Temperature 97.0 F L Pulse Rate 76 Respiratory 18 18 16 Rate Blood Pressure 112/71 01/14/18 07:16 Temperature 98.0 F Pulse Rate 84 Respiratory 18 Rate Blood Pressure 117/74 Patients vital signs are currently stable, patient ambulates with cane and fall risk. clonidine not appropriate at the time d/t to risk for hypotension, falls, v/s stable no signs of acute withdrawal. Plan: increase fluids continue to monitor
[2018-01-14] MEDS: THIAMINE HCL 100 MG TABLET (FP) PO SCH (22:00)
[2018-01-14] MEDS: hydrOXYzine PAMOATE 50 MG CAPSULE (FP) PO SCH (22:00)
[2018-01-14] MEDS: traZODone HCL 50 MG TABLET (FP) PO SCH (22:01)
[2018-01-15] MEDS ORDERED: METHADONE HCL 40 MG DISPERSABLE TABLET ONE (04:47)
[2018-01-15] MEDS ORDERED: METHADONE HCL 5 MG TABLET ONE (04:47)
[2018-01-15] MEDS: METHADONE 40 MG, METHADONE 5 MG PO SCH (06:44)
[2018-01-15] MEDS: NICOTINE POLACRILEX 2 MG GUM BC PRN (06:44)
[2018-01-15] MEDS: METHYL SALICYLATE/MENTHOL OINT 30 GM TUBE TP SCH ×2 (10:06→21:16)
[2018-01-15] MEDS: NICOTINE 14 MG/24 HOURS TOPICAL PATCH TD SCH (10:07)
[2018-01-15] MEDS: PRENATAL VITAMINS W/ FOLIC ACID TABLET (FP) PO SCH (10:07)
[2018-01-15] MEDS: FLUoxetine HCL 20 MG CAPSULE (FP) PO SCH (10:07)
--- NOTE | 2018-01-15 11:36 | PN ---
[facility] Progress Note Note: psychiatric nurse practitioner note: Patient leaving AMA. Pt. encouraged to stay but refused to continue treatment. Pt. states he is not content with his treatment and prefers to go elsewhere. Pt. denies thoughts or urges to hurt himself or others.
[2018-01-15] MEDS: THIAMINE HCL 100 MG TABLET (FP) PO SCH (21:16)
[2018-01-15] MEDS: hydrOXYzine PAMOATE 50 MG CAPSULE (FP) PO SCH (21:16)
[2018-01-15] MEDS: traZODone HCL 50 MG TABLET (FP) PO SCH (21:16)
[2018-01-16] MEDS ORDERED: METHADONE HCL 5 MG TABLET ONE (05:59)
[2018-01-16] MEDS ORDERED: METHADONE HCL 40 MG DISPERSABLE TABLET ONE (05:59)
[2018-01-16] MEDS: METHADONE 40 MG, METHADONE 5 MG PO SCH (06:22)
[2018-01-16] MEDS: METHYL SALICYLATE/MENTHOL OINT 30 GM TUBE TP SCH ×2 (10:25→22:06)
[2018-01-16] MEDS: PRENATAL VITAMINS W/ FOLIC ACID TABLET (FP) PO SCH (10:25)
[2018-01-16] MEDS: FLUoxetine HCL 20 MG CAPSULE (FP) PO SCH (10:25)
[2018-01-16] MEDS: NICOTINE 14 MG/24 HOURS TOPICAL PATCH TD SCH (10:25)
--- NOTE | 2018-01-16 13:05 | PN ---
S Progress Note Note: Reports hx of "pinch nerve lower back" with frequent back pain. Denies new onset of incontinence or paresthesia. Vital Signs Temperature 97.7 F 01/16/18 07:30 Pulse Rate 80 01/16/18 07:30 Respiratory Rate 18 01/16/18 07:30 Blood Pressure 110/73 01/16/18 07:30 O2 Sat by Pulse Oximetry (%) Laboratory Last Values WBC 8.5 K/mm3 (4.0-10.0) 01/02/18 07:00 RBC 4.43 M/mm3 (4.00-5.60) 01/02/18 07:00 Hgb 12.6 GM/dL (11.7-16.9) 01/02/18 07:00 Hct 38.0 % (35.4-49) 01/02/18 07:00 MCV 85.9 fl (80-96) 01/02/18 07:00 MCH 28.3 pg (25.7-33.7) 01/02/18 07:00 MCHC 33.0 g/dl (32.0-35.9) 01/02/18 07:00 RDW 13.7 % (11.9-15.9) 01/02/18 07:00 Plt Count 273 K/MM3 (134-434) 01/02/18 07:00 MPV 7.7 fl (7.5-11.1) 01/02/18 07:00 Sodium 143 mmol/L (136-145) 01/02/18 07:00 Potassium 4.6 mmol/L (3.5-5.1) 01/02/18 07:00 Chloride 106 mmol/L (98-107) 01/02/18 07:00 Carbon Dioxide 31 mmol/L (21-32) D 01/02/18 07:00 Anion Gap 6 (8-16) L 01/02/18 07:00 BUN 10 mg/dL (7-18) 01/02/18 07:00 Creatinine 0.7 mg/dL (0.7-1.3) 01/02/18 07:00 Creat Clearance w eGFR > 60 (>60) 01/02/18 07:00 Random Glucose 82 mg/dL (74-106) 01/02/18 07:00 Calcium 8.2 mg/dL (8.5-10.1) L 01/02/18 07:00 Total Bilirubin 0.3 mg/dL (0.2-1.0) D 01/02/18 07:00 AST 12 U/L (15-37) L D 01/02/18 07:00 ALT 14 U/L (12-78) D 01/02/18 07:00 Alkaline Phosphatase 111 U/L (45-117) D 01/02/18 07:00 Total Protein 6.9 g/dl (6.4-8.2) 01/02/18 07:00 Albumin 3.1 g/dl (3.4-5.0) L 01/02/18 07:00 Urine Color Straw 01/02/18 00:01 Urine Appearance Clear 01/02/18 00: Urine pH 6.0 (5.0-8.0) 01/02/18 00:01 Ur Specific [place] 1.004 (1.001-1.035) 01/02/18 00:01 Urine Protein Negative (NEGATIVE) 01/02/18 00: Urine Glucose (UA) Negative (NEGATIVE) 01/02/18 00: Urine Ketones Negative (NEGATIVE) 01/02/18 00: Urine Blood Negative (NEGATIVE) 01/02/18 00: Urine Nitrite Negative (NEGATIVE) 01/02/18 00: Urine Bilirubin Negative (<2.0 mg/dL) 01/02/18 00:01 Urine Urobilinogen Negative mg/dL (0.2-1.0) 01/02/18 00:01 Ur Leukocyte Esterase Negative (NEGATIVE) 01/02/18 00: RPR Titer Nonreactive (NONREACTIVE) 01/02/18 07:00 A/P AOx3 no distress no adventitious breathsoudns + back pain FULL ROM ambulating in the unit - Low back pain Plan: No infection process present flexeril 5mg TID PRN ibuprofen 400mg PRN Lidocaine patch lower back QD PRN ambulate increase fluids Continue to monitor
[2018-01-16] MEDS: LIDOCAINE 5% TOPICAL PATCH TP SCH (15:34)
[2018-01-16] MEDS: CYCLOBENZAPRINE HCL 5 MG TABLET PO SCH ×2 (15:34→22:05)
[2018-01-16] MEDS: hydrOXYzine PAMOATE 50 MG CAPSULE (FP) PO SCH (22:05)
[2018-01-16] MEDS: THIAMINE HCL 100 MG TABLET (FP) PO SCH (22:05)
[2018-01-16] MEDS: traZODone HCL 50 MG TABLET (FP) PO SCH (22:05)
[2018-01-16] MEDS: LIDOCAINE PATCH REMOVAL MC SCH (22:06)
[2018-01-17] MEDS ORDERED: METHADONE HCL 5 MG TABLET ONE (04:51)
[2018-01-17] MEDS ORDERED: METHADONE HCL 40 MG DISPERSABLE TABLET ONE (04:51)
[2018-01-17] MEDS: CYCLOBENZAPRINE HCL 5 MG TABLET PO SCH ×3 (06:54→21:34)
[2018-01-17] MEDS: METHADONE 40 MG, METHADONE 5 MG PO SCH (06:56)
[2018-01-17] MEDS: FLUoxetine HCL 20 MG CAPSULE (FP) PO SCH (10:33)
[2018-01-17] MEDS: LIDOCAINE 5% TOPICAL PATCH TP SCH (10:33)
[2018-01-17] MEDS: PRENATAL VITAMINS W/ FOLIC ACID TABLET (FP) PO SCH (10:33)
[2018-01-17] MEDS: NICOTINE 14 MG/24 HOURS TOPICAL PATCH TD SCH (10:33)
[2018-01-17] MEDS: METHYL SALICYLATE/MENTHOL OINT 30 GM TUBE TP SCH ×2 (10:38→21:35)
[2018-01-17] MEDS: THIAMINE HCL 100 MG TABLET (FP) PO SCH (21:34)
[2018-01-17] MEDS: traZODone HCL 50 MG TABLET (FP) PO SCH (21:34)
[2018-01-17] MEDS: hydrOXYzine PAMOATE 50 MG CAPSULE (FP) PO SCH (21:34)
[2018-01-17] MEDS: LIDOCAINE PATCH REMOVAL MC SCH (21:35)
[2018-01-18] MEDS ORDERED: METHADONE HCL 5 MG TABLET ONE (04:48)
[2018-01-18] MEDS ORDERED: METHADONE HCL 40 MG DISPERSABLE TABLET ONE (04:48)
[2018-01-18] MEDS: METHADONE 40 MG, METHADONE 5 MG PO SCH (06:37)
[2018-01-18] MEDS: CYCLOBENZAPRINE HCL 5 MG TABLET PO SCH ×3 (06:39→21:38)
[2018-01-18] MEDS: FLUoxetine HCL 20 MG CAPSULE (FP) PO SCH (10:46)
[2018-01-18] MEDS: NICOTINE 14 MG/24 HOURS TOPICAL PATCH TD SCH (10:46)
[2018-01-18] MEDS: PRENATAL VITAMINS W/ FOLIC ACID TABLET (FP) PO SCH (10:46)
[2018-01-18] MEDS: LIDOCAINE 5% TOPICAL PATCH TP SCH (10:47)
[2018-01-18] MEDS: METHYL SALICYLATE/MENTHOL OINT 30 GM TUBE TP SCH ×2 (10:47→21:38)
[2018-01-18] MEDS: traZODone HCL 50 MG TABLET (FP) PO SCH (21:38)
[2018-01-18] MEDS: THIAMINE HCL 100 MG TABLET (FP) PO SCH (21:38)
[2018-01-18] MEDS: LIDOCAINE PATCH REMOVAL MC SCH (21:38)
[2018-01-18] MEDS: hydrOXYzine PAMOATE 50 MG CAPSULE (FP) PO SCH (21:38)
[2018-01-19] MEDS ORDERED: METHADONE HCL 5 MG TABLET ONE (04:42)
[2018-01-19] MEDS ORDERED: METHADONE HCL 40 MG DISPERSABLE TABLET ONE (04:42)
[2018-01-19] MEDS: METHADONE 40 MG, METHADONE 5 MG PO SCH (06:40)
[2018-01-19] MEDS: CYCLOBENZAPRINE HCL 5 MG TABLET PO SCH ×3 (06:42→21:37)
[2018-01-19] MEDS: METHYL SALICYLATE/MENTHOL OINT 30 GM TUBE TP SCH ×2 (10:28→21:37)
[2018-01-19] MEDS: PRENATAL VITAMINS W/ FOLIC ACID TABLET (FP) PO SCH (10:28)
[2018-01-19] MEDS: NICOTINE 14 MG/24 HOURS TOPICAL PATCH TD SCH (10:28)
[2018-01-19] MEDS: FLUoxetine HCL 20 MG CAPSULE (FP) PO SCH (10:28)
[2018-01-19] MEDS: LIDOCAINE 5% TOPICAL PATCH TP SCH (10:31)
[2018-01-19] MEDS: hydrOXYzine PAMOATE 50 MG CAPSULE (FP) PO SCH (21:37)
[2018-01-19] MEDS: THIAMINE HCL 100 MG TABLET (FP) PO SCH (21:37)
[2018-01-19] MEDS: traZODone HCL 50 MG TABLET (FP) PO SCH (21:37)
[2018-01-19] MEDS: LIDOCAINE PATCH REMOVAL MC SCH (21:37)
[2018-01-20] MEDS ORDERED: METHADONE HCL 5 MG TABLET ONE (04:28)
[2018-01-20] MEDS ORDERED: METHADONE HCL 40 MG DISPERSABLE TABLET ONE (04:29)
[2018-01-20] MEDS: METHADONE 40 MG, METHADONE 5 MG PO SCH (06:28)
[2018-01-20] MEDS: CYCLOBENZAPRINE HCL 5 MG TABLET PO SCH ×3 (06:28→21:56)
[2018-01-20] MEDS: PRENATAL VITAMINS W/ FOLIC ACID TABLET (FP) PO SCH (10:36)
[2018-01-20] MEDS: FLUoxetine HCL 20 MG CAPSULE (FP) PO SCH (10:36)
[2018-01-20] MEDS: NICOTINE 14 MG/24 HOURS TOPICAL PATCH TD SCH (10:36)
[2018-01-20] MEDS: METHYL SALICYLATE/MENTHOL OINT 30 GM TUBE TP SCH ×2 (10:36→21:57)
[2018-01-20] MEDS: LIDOCAINE 5% TOPICAL PATCH TP SCH (10:36)
[2018-01-20] MEDS: THIAMINE HCL 100 MG TABLET (FP) PO SCH (21:56)
[2018-01-20] MEDS: hydrOXYzine PAMOATE 50 MG CAPSULE (FP) PO SCH (21:56)
[2018-01-20] MEDS: traZODone HCL 50 MG TABLET (FP) PO SCH (21:56)
[2018-01-20] MEDS: LIDOCAINE PATCH REMOVAL MC SCH (21:57)
[2018-01-21] MEDS ORDERED: METHADONE HCL 40 MG DISPERSABLE TABLET ONE (04:53)
[2018-01-21] MEDS ORDERED: METHADONE HCL 5 MG TABLET ONE (04:53)
[2018-01-21] MEDS: METHADONE 40 MG, METHADONE 5 MG PO SCH (06:35)
[2018-01-21] MEDS: CYCLOBENZAPRINE HCL 5 MG TABLET PO SCH ×3 (08:15→21:39)
[2018-01-21] MEDS: PRENATAL VITAMINS W/ FOLIC ACID TABLET (FP) PO SCH (10:34)
[2018-01-21] MEDS: NICOTINE 14 MG/24 HOURS TOPICAL PATCH TD SCH (10:34)
[2018-01-21] MEDS: FLUoxetine HCL 20 MG CAPSULE (FP) PO SCH (10:34)
[2018-01-21] MEDS: LIDOCAINE 5% TOPICAL PATCH TP SCH (10:34)
[2018-01-21] MEDS: METHYL SALICYLATE/MENTHOL OINT 30 GM TUBE TP SCH ×2 (10:35→21:39)
[2018-01-21] MEDS: THIAMINE HCL 100 MG TABLET (FP) PO SCH (21:39)
[2018-01-21] MEDS: traZODone HCL 50 MG TABLET (FP) PO SCH (21:39)
[2018-01-21] MEDS: hydrOXYzine PAMOATE 50 MG CAPSULE (FP) PO SCH (21:39)
[2018-01-21] MEDS: LIDOCAINE PATCH REMOVAL MC SCH (21:39)
[2018-01-22] MEDS ORDERED: METHADONE HCL 40 MG DISPERSABLE TABLET ONE (05:49)
[2018-01-22] MEDS ORDERED: METHADONE HCL 5 MG TABLET ONE (05:49)
[2018-01-22] MEDS: CYCLOBENZAPRINE HCL 5 MG TABLET PO SCH ×3 (06:18→21:38)
[2018-01-22] MEDS: METHADONE 40 MG, METHADONE 5 MG PO SCH (06:18)
[2018-01-22] MEDS: PRENATAL VITAMINS W/ FOLIC ACID TABLET (FP) PO SCH (10:45)
[2018-01-22] MEDS: FLUoxetine HCL 20 MG CAPSULE (FP) PO SCH (10:45)
[2018-01-22] MEDS: NICOTINE 14 MG/24 HOURS TOPICAL PATCH TD SCH (10:46)
[2018-01-22] MEDS: LIDOCAINE 5% TOPICAL PATCH TP SCH (10:46)
[2018-01-22] MEDS: METHYL SALICYLATE/MENTHOL OINT 30 GM TUBE TP SCH ×2 (10:47→21:38)
[2018-01-22] MEDS: traZODone HCL 50 MG TABLET (FP) PO SCH (21:38)
[2018-01-22] MEDS: LIDOCAINE PATCH REMOVAL MC SCH (21:38)
[2018-01-22] MEDS: hydrOXYzine PAMOATE 50 MG CAPSULE (FP) PO SCH (21:38)
[2018-01-22] MEDS: THIAMINE HCL 100 MG TABLET (FP) PO SCH (21:38)
[2018-01-23] MEDS ORDERED: METHADONE HCL 40 MG DISPERSABLE TABLET ONE (03:47)
[2018-01-23] MEDS ORDERED: METHADONE HCL 5 MG TABLET ONE (03:47)
[2018-01-23] MEDS: CYCLOBENZAPRINE HCL 5 MG TABLET PO SCH ×3 (09:46→21:33)
[2018-01-23] MEDS: METHADONE 40 MG, METHADONE 5 MG PO SCH (09:47)
[2018-01-23] MEDS: PRENATAL VITAMINS W/ FOLIC ACID TABLET (FP) PO SCH (10:43)
[2018-01-23] MEDS: FLUoxetine HCL 20 MG CAPSULE (FP) PO SCH (10:43)
[2018-01-23] MEDS: METHYL SALICYLATE/MENTHOL OINT 30 GM TUBE TP SCH ×2 (10:43→21:33)
[2018-01-23] MEDS: LIDOCAINE 5% TOPICAL PATCH TP SCH (10:43)
[2018-01-23] MEDS: NICOTINE 14 MG/24 HOURS TOPICAL PATCH TD SCH (10:44)
[2018-01-23] MEDS: LIDOCAINE PATCH REMOVAL MC SCH (21:33)
[2018-01-23] MEDS: hydrOXYzine PAMOATE 50 MG CAPSULE (FP) PO SCH (21:33)
[2018-01-23] MEDS: traZODone HCL 50 MG TABLET (FP) PO SCH (21:33)
[2018-01-23] MEDS: THIAMINE HCL 100 MG TABLET (FP) PO SCH (21:33)
[2018-01-24] MEDS ORDERED: METHADONE HCL 40 MG DISPERSABLE TABLET ONE (05:17)
[2018-01-24] MEDS ORDERED: METHADONE HCL 5 MG TABLET ONE (05:17)
[2018-01-24] MEDS: CYCLOBENZAPRINE HCL 5 MG TABLET PO SCH ×3 (06:35→21:44)
[2018-01-24] MEDS: METHADONE 40 MG, METHADONE 5 MG PO SCH (06:35)
[2018-01-24] MEDS: PRENATAL VITAMINS W/ FOLIC ACID TABLET (FP) PO SCH (10:48)
[2018-01-24] MEDS: NICOTINE 14 MG/24 HOURS TOPICAL PATCH TD SCH (10:48)
[2018-01-24] MEDS: METHYL SALICYLATE/MENTHOL OINT 30 GM TUBE TP SCH ×2 (10:48→21:45)
[2018-01-24] MEDS: FLUoxetine HCL 20 MG CAPSULE (FP) PO SCH (10:48)
[2018-01-24] MEDS: LIDOCAINE 5% TOPICAL PATCH TP SCH (10:49)
[2018-01-24] MEDS: NICOTINE POLACRILEX 2 MG GUM BC PRN (17:49)
[2018-01-24] MEDS: hydrOXYzine PAMOATE 50 MG CAPSULE (FP) PO SCH (21:44)
[2018-01-24] MEDS: THIAMINE HCL 100 MG TABLET (FP) PO SCH (21:44)
[2018-01-24] MEDS: traZODone HCL 50 MG TABLET (FP) PO SCH (21:44)
[2018-01-24] MEDS: LIDOCAINE PATCH REMOVAL MC SCH (21:45)
[2018-01-25] MEDS ORDERED: METHADONE HCL 5 MG TABLET ONE (05:46)
[2018-01-25] MEDS ORDERED: METHADONE HCL 40 MG DISPERSABLE TABLET ONE (05:46)
[2018-01-25] MEDS: METHADONE 40 MG, METHADONE 5 MG PO SCH (06:46)
[2018-01-25] MEDS: CYCLOBENZAPRINE HCL 5 MG TABLET PO SCH ×3 (06:46→21:56)
[2018-01-25] MEDS: METHYL SALICYLATE/MENTHOL OINT 30 GM TUBE TP SCH ×2 (10:29→21:57)
[2018-01-25] MEDS: NICOTINE 14 MG/24 HOURS TOPICAL PATCH TD SCH (10:29)
[2018-01-25] MEDS: PRENATAL VITAMINS W/ FOLIC ACID TABLET (FP) PO SCH (10:29)
[2018-01-25] MEDS: LIDOCAINE 5% TOPICAL PATCH TP SCH (10:29)
[2018-01-25] MEDS: FLUoxetine HCL 20 MG CAPSULE (FP) PO SCH (10:29)
[2018-01-25] MEDS: THIAMINE HCL 100 MG TABLET (FP) PO SCH (21:56)
[2018-01-25] MEDS: hydrOXYzine PAMOATE 50 MG CAPSULE (FP) PO SCH (21:56)
[2018-01-25] MEDS: traZODone HCL 50 MG TABLET (FP) PO SCH (21:56)
[2018-01-25] MEDS: LIDOCAINE PATCH REMOVAL MC SCH (21:57)
[2018-01-26] MEDS ORDERED: METHADONE HCL 5 MG TABLET ONE (03:18)
[2018-01-26] MEDS ORDERED: METHADONE HCL 40 MG DISPERSABLE TABLET ONE (03:18)
[2018-01-26] MEDS: METHADONE 40 MG, METHADONE 5 MG PO SCH (06:40)
[2018-01-26] MEDS: CYCLOBENZAPRINE HCL 5 MG TABLET PO SCH ×3 (06:40→21:51)
[2018-01-26] MEDS: PRENATAL VITAMINS W/ FOLIC ACID TABLET (FP) PO SCH (10:12)
[2018-01-26] MEDS: LIDOCAINE 5% TOPICAL PATCH TP SCH (10:12)
[2018-01-26] MEDS: NICOTINE 14 MG/24 HOURS TOPICAL PATCH TD SCH (10:12)
[2018-01-26] MEDS: FLUoxetine HCL 20 MG CAPSULE (FP) PO SCH (10:12)
[2018-01-26] MEDS: METHYL SALICYLATE/MENTHOL OINT 30 GM TUBE TP SCH ×2 (10:13→21:50)
[2018-01-26] MEDS ORDERED: PT OWN MED DRAWER 7, Y5N ONE (20:50)
[2018-01-26] MEDS: THIAMINE HCL 100 MG TABLET (FP) PO SCH (21:51)
[2018-01-26] MEDS: LIDOCAINE PATCH REMOVAL MC SCH (21:51)
[2018-01-26] MEDS: traZODone HCL 50 MG TABLET (FP) PO SCH (21:51)
[2018-01-26] MEDS: hydrOXYzine PAMOATE 50 MG CAPSULE (FP) PO SCH (21:51)
[2018-01-27] MEDS ORDERED: METHADONE HCL 40 MG DISPERSABLE TABLET ONE (04:12)
[2018-01-27] MEDS ORDERED: METHADONE HCL 5 MG TABLET ONE (04:13)
[2018-01-27] MEDS: METHADONE 40 MG, METHADONE 5 MG PO SCH (06:44)
[2018-01-27] MEDS: CYCLOBENZAPRINE HCL 5 MG TABLET PO SCH ×3 (06:44→21:55)
[2018-01-27] MEDS: NICOTINE 14 MG/24 HOURS TOPICAL PATCH TD SCH (11:19)
[2018-01-27] MEDS: PRENATAL VITAMINS W/ FOLIC ACID TABLET (FP) PO SCH (11:19)
[2018-01-27] MEDS: LIDOCAINE 5% TOPICAL PATCH TP SCH (11:19)
[2018-01-27] MEDS: FLUoxetine HCL 20 MG CAPSULE (FP) PO SCH (11:22)
[2018-01-27] MEDS: METHYL SALICYLATE/MENTHOL OINT 30 GM TUBE TP SCH ×2 (13:19→21:55)
[2018-01-27] MEDS: hydrOXYzine PAMOATE 50 MG CAPSULE (FP) PO SCH (21:55)
[2018-01-27] MEDS: traZODone HCL 50 MG TABLET (FP) PO SCH (21:55)
[2018-01-27] MEDS: THIAMINE HCL 100 MG TABLET (FP) PO SCH (21:55)
[2018-01-27] MEDS: LIDOCAINE PATCH REMOVAL MC SCH (21:56)
[2018-01-28] MEDS ORDERED: METHADONE HCL 40 MG DISPERSABLE TABLET ONE (04:35)
[2018-01-28] MEDS ORDERED: METHADONE HCL 5 MG TABLET ONE (04:36)
[2018-01-28] MEDS: CYCLOBENZAPRINE HCL 5 MG TABLET PO SCH ×3 (06:35→21:46)
[2018-01-28] MEDS: METHADONE 40 MG, METHADONE 5 MG PO SCH (06:35)
[2018-01-28] MEDS: PRENATAL VITAMINS W/ FOLIC ACID TABLET (FP) PO SCH (10:36)
[2018-01-28] MEDS: NICOTINE 14 MG/24 HOURS TOPICAL PATCH TD SCH (10:36)
[2018-01-28] MEDS: LIDOCAINE 5% TOPICAL PATCH TP SCH (10:36)
[2018-01-28] MEDS: FLUoxetine HCL 20 MG CAPSULE (FP) PO SCH (10:36)
[2018-01-28] MEDS: METHYL SALICYLATE/MENTHOL OINT 30 GM TUBE TP SCH ×2 (10:37→21:47)
[2018-01-28] MEDS: hydrOXYzine PAMOATE 50 MG CAPSULE (FP) PO SCH (21:46)
[2018-01-28] MEDS: THIAMINE HCL 100 MG TABLET (FP) PO SCH (21:46)
[2018-01-28] MEDS: traZODone HCL 50 MG TABLET (FP) PO SCH (21:46)
[2018-01-28] MEDS: LIDOCAINE PATCH REMOVAL MC SCH (21:47)
[2018-01-29] MEDS ORDERED: METHADONE HCL 40 MG DISPERSABLE TABLET ONE (04:08)
[2018-01-29] MEDS ORDERED: METHADONE HCL 5 MG TABLET ONE (04:09)
[2018-01-29] MEDS: CYCLOBENZAPRINE HCL 5 MG TABLET PO SCH ×3 (06:29→22:02)
[2018-01-29] MEDS: METHADONE 40 MG, METHADONE 5 MG PO SCH (06:29)
[2018-01-29] MEDS: PRENATAL VITAMINS W/ FOLIC ACID TABLET (FP) PO SCH (10:26)
[2018-01-29] MEDS: LIDOCAINE 5% TOPICAL PATCH TP SCH (10:26)
[2018-01-29] MEDS: METHYL SALICYLATE/MENTHOL OINT 30 GM TUBE TP SCH ×2 (10:26→22:02)
[2018-01-29] MEDS: FLUoxetine HCL 20 MG CAPSULE (FP) PO SCH (10:26)
[2018-01-29] MEDS: NICOTINE 14 MG/24 HOURS TOPICAL PATCH TD SCH (10:26)
[2018-01-29] MEDS: THIAMINE HCL 100 MG TABLET (FP) PO SCH (22:02)
[2018-01-29] MEDS: LIDOCAINE PATCH REMOVAL MC SCH (22:02)
[2018-01-29] MEDS: traZODone HCL 50 MG TABLET (FP) PO SCH (22:02)
[2018-01-29] MEDS: hydrOXYzine PAMOATE 50 MG CAPSULE (FP) PO SCH (22:03)
[2018-01-30] MEDS ORDERED: METHADONE HCL 40 MG DISPERSABLE TABLET ONE (03:11)
[2018-01-30] MEDS ORDERED: METHADONE HCL 5 MG TABLET ONE (03:11)
[2018-01-30] MEDS: CYCLOBENZAPRINE HCL 5 MG TABLET PO SCH ×2 (06:32→14:48)
[2018-01-30] MEDS: METHADONE 40 MG, METHADONE 5 MG PO SCH (06:35)
[2018-01-30] MEDS: PRENATAL VITAMINS W/ FOLIC ACID TABLET (FP) PO SCH (10:19)
[2018-01-30] MEDS: NICOTINE 14 MG/24 HOURS TOPICAL PATCH TD SCH (10:19)
[2018-01-30] MEDS: LIDOCAINE 5% TOPICAL PATCH TP SCH (10:19)
[2018-01-30] MEDS: FLUoxetine HCL 20 MG CAPSULE (FP) PO SCH (10:19)
[2018-01-30] MEDS: METHYL SALICYLATE/MENTHOL OINT 30 GM TUBE TP SCH ×2 (10:21→21:52)
--- NOTE | 2018-01-30 14:42 | PN ---
S Progress Note Note: Vital Signs Temperature 97.8 F 01/30/18 07:14 Pulse Rate 95 H 01/30/18 10:00 Respiratory Rate 18 01/30/18 10:00 Blood Pressure 120/84 01/30/18 10:00 O2 Sat by Pulse Oximetry (%) c/o of no relief with flexeril for back pain. Patient started on Robaxin 500 mg BID . Continue to monitor
[2018-01-30] MEDS: METHOCARBAMOL 500 MG TABLET PO SCH (21:51)
[2018-01-30] MEDS: hydrOXYzine PAMOATE 50 MG CAPSULE (FP) PO SCH (21:51)
[2018-01-30] MEDS: traZODone HCL 50 MG TABLET (FP) PO SCH (21:51)
[2018-01-30] MEDS: THIAMINE HCL 100 MG TABLET (FP) PO SCH (21:51)
[2018-01-30] MEDS: LIDOCAINE PATCH REMOVAL MC SCH (21:52)
[2018-01-31] MEDS ORDERED: METHADONE HCL 40 MG DISPERSABLE TABLET ONE (04:25)
[2018-01-31] MEDS ORDERED: METHADONE HCL 5 MG TABLET ONE (04:25)
[2018-01-31] MEDS: METHADONE 40 MG, METHADONE 5 MG PO SCH (06:34)
[2018-01-31] MEDS: PRENATAL VITAMINS W/ FOLIC ACID TABLET (FP) PO SCH (10:17)
[2018-01-31] MEDS: METHOCARBAMOL 500 MG TABLET PO SCH ×2 (10:18→22:42)
[2018-01-31] MEDS: FLUoxetine HCL 20 MG CAPSULE (FP) PO SCH (10:18)
[2018-01-31] MEDS: NICOTINE 14 MG/24 HOURS TOPICAL PATCH TD SCH (10:18)
[2018-01-31] MEDS: LIDOCAINE 5% TOPICAL PATCH TP SCH (10:18)
[2018-01-31] MEDS: METHYL SALICYLATE/MENTHOL OINT 30 GM TUBE TP SCH ×2 (10:19→22:42)
[2018-01-31] MEDS ORDERED: PT OWN MED DRAWER 7, Y5N ONE (20:38)
[2018-01-31] MEDS: traZODone HCL 50 MG TABLET (FP) PO SCH (22:42)
[2018-01-31] MEDS: hydrOXYzine PAMOATE 50 MG CAPSULE (FP) PO SCH (22:42)
[2018-01-31] MEDS: THIAMINE HCL 100 MG TABLET (FP) PO SCH (22:42)
[2018-01-31] MEDS: LIDOCAINE PATCH REMOVAL MC SCH (22:43)
[2018-02-01] MEDS ORDERED: METHADONE HCL 40 MG DISPERSABLE TABLET ONE (04:33)
[2018-02-01] MEDS ORDERED: METHADONE HCL 5 MG TABLET ONE (04:34)
[2018-02-01] MEDS: METHADONE 40 MG, METHADONE 5 MG PO SCH (06:44)
[2018-02-01] MEDS: METHOCARBAMOL 500 MG TABLET PO SCH ×2 (10:05→21:56)
[2018-02-01] MEDS: FLUoxetine HCL 20 MG CAPSULE (FP) PO SCH (10:05)
[2018-02-01] MEDS: NICOTINE 14 MG/24 HOURS TOPICAL PATCH TD SCH (10:05)
[2018-02-01] MEDS: LIDOCAINE 5% TOPICAL PATCH TP SCH (10:05)
[2018-02-01] MEDS: PRENATAL VITAMINS W/ FOLIC ACID TABLET (FP) PO SCH (10:05)
[2018-02-01] MEDS: METHYL SALICYLATE/MENTHOL OINT 30 GM TUBE TP SCH ×2 (10:06→21:57)
[2018-02-01] MEDS: THIAMINE HCL 100 MG TABLET (FP) PO SCH (21:56)
[2018-02-01] MEDS: traZODone HCL 50 MG TABLET (FP) PO SCH (21:56)
[2018-02-01] MEDS: hydrOXYzine PAMOATE 50 MG CAPSULE (FP) PO SCH (21:56)
[2018-02-01] MEDS: LIDOCAINE PATCH REMOVAL MC SCH (21:57)
[2018-02-02] MEDS ORDERED: METHADONE HCL 40 MG DISPERSABLE TABLET ONE (04:16)
[2018-02-02] MEDS ORDERED: METHADONE HCL 5 MG TABLET ONE (04:17)
[2018-02-02] MEDS: METHADONE 40 MG, METHADONE 5 MG PO SCH (06:23)
[2018-02-02] MEDS: LIDOCAINE 5% TOPICAL PATCH TP SCH (10:16)
[2018-02-02] MEDS: FLUoxetine HCL 20 MG CAPSULE (FP) PO SCH (10:16)
[2018-02-02] MEDS: NICOTINE 14 MG/24 HOURS TOPICAL PATCH TD SCH (10:16)
[2018-02-02] MEDS: METHOCARBAMOL 500 MG TABLET PO SCH ×2 (10:16→21:51)
[2018-02-02] MEDS: PRENATAL VITAMINS W/ FOLIC ACID TABLET (FP) PO SCH (10:16)
[2018-02-02] MEDS: METHYL SALICYLATE/MENTHOL OINT 30 GM TUBE TP SCH ×2 (10:17→21:52)
--- NOTE | 2018-02-02 16:20 | PN ---
Psychiatric Progress Note Vital Signs: Vital Signs Period Temp Pulse Resp BP Sys/Kim Pulse Ox Last 24 Hr 97.5 F 91 18-18 129/81 Date of Session: 02/02/18 Chief Complaint:: Discharge Note HPI: Patient addressing Alcohol and Sedative Dependence comorbid with Opioid Dependence on Agonist Therapy, Nicotine Dependenceand MDD ROS: Anemia, Hep C, Dyslipidemia Current Medications: Active Medications Generic Name Dose Route Start Last Admin Trade Name Freq PRN Reason Stop Dose Admin Acetaminophen 650 mg 01/01/18 21:40 Tylenol - PO Q4H PRN FEVER Al Hydroxide/Mg Hydroxide 30 ml 01/01/18 21:40 Mylanta Oral Suspension - PO Q6H PRN DYSPEPSIA Eucalyptus/Menthol/Phenol/Sorbitol 1 each 01/01/18 21:40 Cepastat Lozenge - MM Q4H PRN SORE THROAT Fluoxetine HCl 20 mg 01/02/18 11:00 02/02/18 10:16 Prozac - PO 20 mg DAILY GUDELIA Administration Guaifenesin 10 ml 01/01/18 21:40 01/02/18 17:23 Robitussin Dm - PO 10 ml Q6H PRN Administration COUGH Hydroxyzine Pamoate 50 mg 01/06/18 22:00 02/01/18 21:56 Vistaril - PO 50 mg HS GUDELIA Administration Ibuprofen 400 mg 01/01/18 21:40 01/16/18 06:26 Motrin - PO 400 mg Q6H PRN Administration PAIN LEVEL 4-6 Lidocaine 1 patch 01/16/18 13:45 02/02/18 10:16 Lidoderm Patch - TP 1 patch DAILY GUDELIA Administration Loperamide HCl 4 mg 01/01/18 21:40 Imodium - PO Q6H PRN DIARRHEA Magnesium Citrate 300 ml 01/01/18 21:40 Citroma - PO Q48H PRN CONSTIPATION Magnesium Hydroxide 30 ml 01/01/18 21:40 Milk Of Magnesia - PO DAILY PRN CONSTIPATION Methadone HCl 40 mg/ Methadone 45 mg 01/28/18 06:00 02/02/18 06:23 HCl 5 mg PO 02/04/18 05:59 45 mg DAILY@0600 GUDELIA Administration Methocarbamol 500 mg 01/30/18 22:00 02/02/18 10:16 Robaxin - PO 500 mg BID GUDELIA Administration Methyl Salicylate 1 applic 01/03/18 22:00 06/24/18 10:17 Gopal-Sutton - TP 1 applic BID GUDELIA Administration Miscellaneous 1 each 01/16/18 22:00 02/01/18 21:57 Lidoderm Patch Removal MC 1 each DAILY@2200 GUDELIA Administration Nicotine 14 mg 01/02/18 10:00 02/02/18 10:16 Nicoderm Patch - TD 14 mg DAILY GUDELIA Administration Nicotine Polacrilex 2 mg 01/01/18 21:40 01/24/18 17:49 Nicorette Gum - BC 2 mg Q2H PRN Administration NICOTINE REPLACEMENT RX Multivit/Folic Acid/Iron 1 tab 01/02/18 10:00 02/02/18 10:16 Vitamins (Sjr) - PO 1 tab DAILY GUDELIA Administration Pseudoephedrine/Triprolidine 1 combo 01/01/18 21:40 Actifed - PO TID PRN NASAL CONGESTION Thiamine HCl 100 mg 01/01/18 22:00 02/01/18 21:56 Vitamin B1 - PO 100 mg HS GUDELIA Administration Trazodone HCl 50 mg 01/13/18 22:00 02/01/18 21:56 Desyrel - PO 50 mg HS GUDELIA Administration Current Side Effect: No Lab tests ordered: Yes Lab tests reviewed: Yes Provider note:: Patient will complete this program on 02/03/18. He has met his treatment goals and will continue to address his issues in outpatient treatment at [facility]. at [address] [place] [address]. Told law writer that from his participation in this program, he has learned the importance of surround himself with sober support network in order to maintain abstinence. He responded well to Trazadone 50 mg po HS and Prozac 20 mg po daily. Scripts for 30 days supply of medications will be electronically transmitted to [facility] at [address] [place] [address]. He is stable for discharge on 02/03/18 Total face to face time:: 35 Mental Status Exam - Mental Status Exam Alert and Oriented to: Time, Place, Person Cognitive Function: Fair Patient Appearance: Well Groomed Mood: Hopeful, Euthymic Affect: Appropriate Patient Behavior: Cooperative Speech Pattern: Clear Voice Loudness: Normal Thought Process: Intact, Goal Oriented Thought Disorder: Not Present Hallucinations: Denies Suicidal Ideation: Denies Homicidal Ideation: Denies Insight/Judgement: Fair Sleep: Fair Appetite: Good Muscle strength/Tone: Normal Gait/Station: Normal Psychiatric Treatment Plan - Problem List (1) Alcohol dependence Current Visit: Yes Comment: . (2) Sedative hypnotic or anxiolytic dependence Current Visit: Yes Comment: . (3) Opioid dependence on agonist therapy Current Visit: Yes Comment: . (4) Nicotine dependence Current Visit: Yes Qualifiers: Nicotine product type: cigarettes Substance use status: uncomplicated Qualified Code(s): F17.210 - Nicotine dependence, cigarettes, uncomplicated Comment: . (5) MDD (major depressive disorder) Current Visit: Yes Comment: .As per history and existing records. (6) Back pain Current Visit: Yes Qualifiers: Back pain location: low back pain Chronicity: chronic Back pain laterality: unspecified Sciatica presence: unspecified whether sciatica present Qualified Code(s): M54.5 - Low back pain; G89.29 - Other chronic pain (7) Hepatitis C carrier Current Visit: Yes (8) Hypercholesterolemia Current Visit: Yes (9) History of positive PPD Current Visit: Yes Initial treatment plan: Patient will be discharged tomorrow and referred to [facility] for outpatient treatment
[2018-02-02] MEDS: THIAMINE HCL 100 MG TABLET (FP) PO SCH (21:51)
[2018-02-02] MEDS: hydrOXYzine PAMOATE 50 MG CAPSULE (FP) PO SCH (21:51)
[2018-02-02] MEDS: traZODone HCL 50 MG TABLET (FP) PO SCH (21:51)
[2018-02-02] MEDS: LIDOCAINE PATCH REMOVAL MC SCH (21:52)
[2018-02-03] MEDS ORDERED: METHADONE HCL 40 MG DISPERSABLE TABLET ONE (03:09)
[2018-02-03] MEDS ORDERED: METHADONE HCL 5 MG TABLET ONE (03:09)
[2018-02-03] MEDS: METHADONE 40 MG, METHADONE 5 MG PO SCH (06:43)
[2018-02-03 07:11] VITALS: BP 120/81; PULSE 81; TEMP 97.4
[2018-02-03] MEDS: METHOCARBAMOL 500 MG TABLET PO SCH (10:22)
[2018-02-03] MEDS: FLUoxetine HCL 20 MG CAPSULE (FP) PO SCH (10:22)
[2018-02-03] MEDS: PRENATAL VITAMINS W/ FOLIC ACID TABLET (FP) PO SCH (10:22)
== END 2018-02-03 10:25 | disposition home or self-care (01) | DRG 895 ==
LOC: YASAS 17:44 → Y3N 21:44 → UNDODISIN 01-05 11:11 → Y5N 01-05 11:19 → Y3W 01-25 22:47
PROVIDERS: ADMIT Psychiatry & Neurology Psychiatry; ATTEND Psychiatry & Neurology Psychiatry
PROC: HZ2ZZZZ Detoxification Services for Substance Abuse Treatment (ICD-10-PCS; principal; 2017-12-29)
PROC: HZ42ZZZ Group Counseling for Substance Abuse Treatment, Cognitive-Behavioral (ICD-10-PCS; 2018-01-05)
DX: F19.230 Other psychoactive substance dependence with withdrawal, uncomplicated (principal); F11.20 Opioid dependence, uncomplicated; F33.9 Major depressive disorder, recurrent, unspecified; F10.230 Alcohol dependence with withdrawal, uncomplicated; F13.230 Sedative, hypnotic or anxiolytic dependence with withdrawal, uncomplicated; F17.210 Nicotine dependence, cigarettes, uncomplicated; F19.24 Other psychoactive substance dependence with psychoactive substance-induced mood disorder; G47.00 Insomnia, unspecified; E78.5 Hyperlipidemia, unspecified; M54.5 Low back pain; G89.29 Other chronic pain; B18.2 Chronic viral hepatitis C; R76.11 Nonspecific reaction to tuberculin skin test without active tuberculosis; Z91.14 Patient's other noncompliance with medication regimen
CPT/HCPCS: 36415; 71046-TC-FY; 80053; 81003; 85027; 86593; 93005; 93010